=== PATIENT | female | born 1975 | race Caucasian/White ===

== ENCOUNTER 2016-07-11 17:55 | Emergency (ER) | payer OTHER ==
[~2016-07-11] VITALS: Ht 167.6 cm; Wt 62.3 kg
[~2016-07-11 17:55] MED LIST: IBUP200C PO; METO5TAB78 PO; ONDA4TAB6 PO; OXYC1TAB24 PO; POLY17PO6 PO; PROM25SU46 RC; PROM25TA14 PO; ZLP5T PO
[2016-07-11 18:05] VITALS: BP 130/88; PULSE 81; RESP 16; O2SAT 100
[2016-07-11 18:25] LABS: MONOCYTES % (AUTO) 7.4 % (4-12)
[2016-07-11 18:28] LABS: BASOPHILS % (AUTO) 0.1 % (0-3); EOSINOPHILS % (AUTO) 2.6 % (0-5); Mean Corpuscular Hemoglobin 22.5 pg (27.0-35.0); Mean Corpuscular Volume 73.3 fL (81-100); NEUTROPHILS % (AUTO) 50.3 % (40-74); Platelet Count 370 bil/L (150-400)
[2016-07-11 18:51] LABS: Magnesium 1.9 mg/dL (1.6-2.6)
--- NOTE | 2016-07-11 18:56 | ED.REPORT ---
HPI-Abd Pain F 40 and Over Date of Service Jul 11, 2016 ED Provider: Landen Davila MD This is a 40 year old female with a history of pancreatitis s/p gastric bypass presenting to the emergency department complaining of epigastric abdominal pain that began 4 days ago. Reports radiation of epigastric pain to the back and vomiting. Maalox and Tums have not provided any relief. Reports decreased PO intake, pt states even swallowing saliva causes severe "clamping" pain. Denies recent NSAID use. Denies melena, hematochezia, hematemesis, dysuria, diarrhea, or constipation. Pt had revision gastric bypass in 11/2015. Nursing Notes Stated Complaint: STOMACH PAIN Chief Complaint: Female Abdominal Pain Nursing Notes Reviewed: Yes Allergies: Coded Allergies: meloxicam (Verified Allergy, Severe, Rash, 07/11/16) rash, swelling of hands NSAIDS (Non-Steroidal Anti-Inflamma (Verified Allergy, Unknown, due to gastric bypass, 07/11/16) aspirin (Verified Allergy, Unknown, hives, 07/11/16) sumatriptan succinate (Verified Allergy, Unknown, 07/11/16) ANY TRITEN Scheduled PRN Ibuprofen (Ibuprofen) 200 Mg Capsule 400 MG PO QID PRN PRN For Pain Metoclopramide (Reglan) Unknown Strength Tablet Unknown Dose PO QID PRN PRN For Nausea Ondansetron (Zofran) 4 Mg Tablet 4 MG PO Q4 PRN PRN For Nausea Polyethylene Glycol 3350 (Miralax) 17 Gm Powd.pack 17 GM PO DAILY PRN PRN CONSTIPATION Promethazine (Promethazine) 25 Mg Tablet 25 MG PO Q6H PRN PRN For Nausea/ Vomiting only use either the rectal or oral tablets. Do not use more than 25mg total in 6 hrs. Promethazine HCl (Phenergan) 25 Mg Supp.rect 25 MG RC QID PRN PRN For Nausea/ Vomiting Zolpidem (Ambien) 5 Mg Tab 10 MG PO HS PRN PRN For Insomnia oxyCODONE-Acetaminophen 5-325 mg (oxyCODONE-Acetaminophen 5-325 mg) 1 Each Tablet 1-2 TAB PO Q6H PRN PRN For Pain General Time Seen by MD: 18:52 Chief Complaint Abdominal pain Hx Obtained From: Patient Arrived By: Walk-in Sudden in Onset?: Yes Onset Occurred: 4 days ago Symptom Duration: Since onset Severity: Current: Mild Pertinent Negative: Pt denies other symptoms Recent Healthcare: No recent doctor visit, No recent hospitalization Similar Sx Previous: No Past Medical History Past Medical History Notes: NOELLE report is reviewed and notable for multiple narcotics and benzodiazepines from multiple providers and multiple recent ER visits. Past Medical History Hernias Pancreatitis Past Surgical History 3 hernia repair surgeries Gastric bypass surgery Major intestinal surgery after intestines prolapsed into back in June of 2013 which was followed by multiple episodes of pancreatisis Reports: , Cholecystectomy, Hysterectomy Smoking History Current Every Day Smoker Social History Alcohol Use: Denies alcohol use Drug Use: Denies drug use Other Social History: Ambulatory Status Independent Review of Systems Constitutional: Denies: Chills, Fever GI: Reports: Abdominal pain, Vomiting, Denies: Constipation, Diarrhea, Hematemesis, Hematochezia, Nausea Female: Denies: Dysuria Complete sys rev & neg: except as marked. Physical Exam Vital Signs Vital Signs (First) Date Time Temp Pulse Resp B/P Pulse Ox O2 Delivery O2 Flow Rate FiO2 07/11/16 18:05 36.3 81 16 130/88 100 Room Air Initial VS: Reviewed Head / Eyes: Atraumatic, Normocephalic, PERRL ENT: Mucous membranes moist, Conjunctiva normal, No scleral icterus Neck: Supple, Non-tender, Full range of motion Extremities: Vascular intact, Neuro intact, No swelling, No tenderness Skin: Warm, Dry, No cyanosis Neurologic: Alert, Oriented, Nonfocal Psychiatric: Mood/affect normal, Behavior normal, Normal thought content General/Constitutional: Awake, Alert Respiratory / Chest: Breath sounds NL, Breath sounds = bilat, No respiratory distress, No rales, No rhonchi, No wheezing, No stridor Cardiovascular: Heart rate NL, Regular rhythm, Heart sounds NL, Peripheral circulation NL Abdomen: Soft, No guarding, No rebound, BS normoactive Tenderness/Guarding/Rebound: Positive: Tender epigastric Back: Inspection NL, Non-tender, No CVA tenderness Interpretation & Diagnostics Lab Results Interpretation Result Diagram: 07/11/16181607/11/161816 Test 07/11/16 18:17 07/11/16 19:00 White Blood Count 7.5th/mm3 (3.8-10.1) Red Blood Count 4.49mil/mm3 (3.90-5.20) Hemoglobin 10.1g/dL (12.0-15.6) Hematocrit 32.9% (35.0-46.0) Mean Corpuscular Volume 73.3fL (81-100) Mean Corpuscular Hemoglobin 22.5pg (27.0-35.0) Mean Corpuscular Hemoglobin Concent 30.7% (32.0-37.0) Red Cell Distribution Width 19.9% (12.3-15.4) Platelet Count 370bil/L (150-400) Neutrophils (%) (Auto) 50.3% (40-74) Lymphocytes (%) (Auto) 39.3% (14-46) Monocytes (%) (Auto) 7.4% (4-12) Eosinophils (%) (Auto) 2.6% (0-5) Basophils (%) (Auto) 0.1% (0-3) Sodium Level 137mEq/L (134-144) Potassium Level 3.8mEq/L (3.5-5.2) Chloride Level 101mEq/L (97-108) Carbon Dioxide Level 25mmol/L (18-29) Blood Urea Nitrogen 6mg/dL (6-24) Creatinine 0.61mg/dL (0.57-1.00) Estimat Glomerular Filtration Rate 156mL/min (>59) Glucose Level 114mg/dL (60-99) Calcium Level 8.7mg/dL (8.5-10.1) Magnesium Level 1.9mg/dL (1.6-2.6) Total Bilirubin 0.4mg/dL (0.0-1.2) Aspartate Amino Transf (AST/SGOT) 20U/L (0-50) Alanine Aminotransferase (ALT/SGPT) 12U/L (0-32) Alkaline Phosphatase 75U/L (25-150) Total Protein 7.0g/dL (6.4-8.4) Albumin 4.0g/dL (3.4-5.0) Lipase 72U/L (13-60) Hold [place] Top Tube Received (Received) Hold Urine Received (Received) CT Abd / Pelvis Interpretation Study type: Abdom CT oral contrast Interpretation / Wet Read by: Discussed w radiologist NL CT Abdomen Findings: No acute disease Re-Eval/Medical Decision Med Decision/Clinical Course This is a 40 year old female with a history of pancreatitis s/p gastric bypass presenting to the emergency department complaining of epigastric abdominal pain that began 4 days ago. Reports radiation of epigastric pain to the back and vomiting. Maalox and Tums have not provided any relief. Reports decreased PO intake, pt states even swallowing saliva causes severe "clamping" pain. Denies recent NSAID use. Denies melena, hematochezia, hematemesis, dysuria, diarrhea, or constipation. Pt had revision gastric bypass in 11/2015. Here in the emergency department the patient is afebrile stool examination as above. Of note she is tender about the epigastric region. Laboratory studies notable as below: no leucocytosis Hct 32.9 which is stable from baseline chemistry unremarkable lipase mildly elevated at 72 though decreased from baseline Patient was treated with the below medications: IV pantoprazole IV fluids 8 mg Zofran hydromorphone PRN Patient reported significant symptomatic improvement. Due to concern for possible anastomotic leak competition related to her gastric bypass surgery I obtained a CT scan of the abdomen and pelvis that was essentially unremarkable. Serial abdominal examinations remained benign. Patient has been started on omeprazole and referred to gastroenterology for consideration of upper endoscopy to assess for any evidence of peptic ulcer disease. At this time I feel she is appropriate for discharge home. Pulse pressure precautions were given detail and she was discharged in good condition. Counseled Regarding: Diagnosis, Lab results, Need for follow-up, When/why to return to ED Discharge & Departure Primary Impression: Gastritis Additional Impressions: History of gastric bypass Epigastric pain Disposition: Home Discharge Condition All VS Reviewed: Yes Condition: Stable Patient Instructions: Gastritis (ED) Additional Instructions: Thank you for seeking care at emergency room. It is difficult for us to make definitive diagnoses in the ED but we believe that you are experiencing gastritis. Our primary goal today in the ED was to evaluate you for any life-threatening conditions. Your evaluation was reassuring. You will be discharged with a prescription for omeprazole, take as prescribed. You should follow-up with the GI doctor listed below. You should return to the ED immediately if you develop fevers, vomiting, cough, shortness of breath, chest pain, lightheadedness, weakness or any other concerning signs or symptoms. Thank you for letting us partake in your care today. Referrals: OTHER,PHYSICIAN (PCP) Jose Beck MD Scribe Attestation Portions of this note were transcribed by Claudia Monique. I, Dr. Davila personally performed the history, physical exam and medical decision-making; I reviewed and confirmed the accuracy of the information in the transcribed note. Signed by: stacy Syed. 07/11/2016, 23:30. Landen Davila MD Jul 11, 2016 18:55 CLAUDIA MONIQUE Jul 11, 2016 19:00
[2016-07-11] MEDS ORDERED: 0.9% Sodium Chloride 1,000 ML IV ONE (19:40)
[2016-07-11] MEDS ORDERED: Ondansetron 2 mg/mL 2 mL Inj IVPUSH ONE ×2 (19:40→21:50)
[2016-07-11] MEDS ORDERED: Pantoprazole 4 mg/mL 10 mL Inj IVPUSH ONE (19:40)
[2016-07-11] MEDS ORDERED: Iohexol 240 mg/mL 10 mL Inj IVPUSH ONE (19:50)
[2016-07-11] MEDS: HYDROmorphone 0.5 mg/0.5 mL iSecure Syringe IVPUSH PRN ×3 (20:08→22:02)
[2016-07-11] MEDS ORDERED: Iohexol 300 mg/mL 30 mL Inj PO ONE (20:20)
[2016-07-11] MEDS ORDERED: OMEP20CA11 PO (22:12)
[2016-07-11] MEDS ORDERED: ONDA4TAB9 PO (22:12)
--- NOTE | 2016-07-11 22:12 | DRSVH ---
PROCEDURE: CT ABDOMEN AND PELVIS WITH CONTRAST ([id number]) INDICATIONS: epigastic pain, h/o gastric bypass TECHNIQUE: After the administration of oral and intravenous contrast, 5 mm thick sections acquired from the diap hragms to the symphysis. 5 mm thick coronal and sagittal reformats were performed. For radiation do se reduction, the following was used: automated exposure control, adjustment of mA and/or kV accordi ng to patient size. COMPARISON: [facility], CT, ABDOMEN/PELVIS WITH CONTRAST, 09/14/2015, 17:17. FINDINGS: Image quality: Excellent. ABDOMEN: Lung bases: Lung bases are clear. Heart size is normal. Solid organs: Liver and spleen are normal in size and enhancement. Scattered low attenuation foci ar e present within the liver, suggestive of cysts. Low-attenuation splenic foci are again noted without change. Gallbladder has been removed. Biliary system is non-dilated. Pancreas enhances normally. No adrenal nodules. Kidneys are normal in size and enhancement, without hydronephrosis. Peritoneum and bowel: Small bowel, and colon loops are normal in caliber and wall thickness. No fidel e fluid or air. Gastric bypass surgical changes are noted. Moderate stool is present. Nodes and vessels: No retroperitoneal or mesenteric adenopathy. Aorta and inferior vena cava are no rmal in caliber. Miscellaneous: No ventral hernias. PELVIS: Genitourinary: Bladder wall thickness is normal. Prominent follicles/small cysts within the left ov homer. Miscellaneous: No inguinal hernias or adenopathy. Bones: No suspicious bony lesions. No vertebral body compression fractures. IMPRESSION: 1. Surgical changes reflecting gastric bypass. No acute abdominal or pelvic pathology. 2. Hepatic cysts. Dictated by: Jennifer Soriano M.D. on 07/11/2016 at 22:06 Approved by: Jennifer Soriano M.D. on 07/11/2016 at 22:10
[2016-07-11] MEDS ORDERED: HYDR-4003 PO (22:17)
[2016-07-11 22:19] VITALS: BP 128/82; PULSE 80; RESP 16; O2SAT 98
== END 2016-07-11 22:21 | disposition home or self-care (01) ==
LOC: SED 17:55
DX: K29.70 Gastritis, unspecified, without bleeding (principal); R10.13 Epigastric pain; F17.200 Nicotine dependence, unspecified, uncomplicated; Z98.84 Bariatric surgery status; Z88.8 Allergy status to other drugs, medicaments and biological substances; Z88.6 Allergy status to analgesic agent
CPT/HCPCS: 36415; 74177; 80053; 83690; 83735; 85025; 96361; 96374; 96375; 96376; 99285; J1170; J2405; J7030; Q9967

== ENCOUNTER 2016-10-06 09:52 | Emergency (ER) | payer OTHER ==
[~2016-10-06] VITALS: Ht 167.6 cm; Wt 64.5 kg
[~2016-10-06 09:52] MED LIST changes: +HYDR-4003 PO; +OMEP20CA11 PO; +ONDA4TAB9 PO
[2016-10-06 10:03] VITALS: BP 132/86; PULSE 93; RESP 20; O2SAT 100
--- NOTE | 2016-10-06 10:23 | ED.REPORT ---
HPI-Abd Pain F 40 and Over Date of Service October 06, 2016 ED Provider: Eulogio Parks MD The patient is a 40 year old female who presents to the ED with severe lower back pain onset last night. C/o associated nausea. There was no apparent fall or trauma that could have led to symptoms. She denies UTI symptoms and fever. When she stands up she has groin pain. Sig hx of hysterectomy, cholecystectomy, gastric bypass surgery, intestinal surgery, and pancreatitis. Pt requests narcotics. Nursing Notes Stated Complaint: KIDNEY PAIN Chief Complaint: Female Abdominal Pain Nursing Notes Reviewed: Yes Allergies: Coded Allergies: meloxicam (Verified Allergy, Severe, Rash, 10/06/16) rash, swelling of hands NSAIDS (Non-Steroidal Anti-Inflamma (Verified Allergy, Unknown, due to gastric bypass, 10/06/16) aspirin (Verified Allergy, Unknown, hives, 10/06/16) sumatriptan succinate (Verified Allergy, Unknown, 10/06/16) ANY TRITEN Scheduled Omeprazole (Omeprazole) 20 Mg Capsule.dr 20 MG PO BID Scheduled PRN Hydrocodone-Acetaminophen 5-325 mg (Hydrocodone-Acetaminophen 5-325 mg) 1 Each Tablet 1 TABLET PO Q4H PRN PRN For Pain Hydrocodone-Acetaminophen 5-325 mg (Hydrocodone-Acetaminophen 5-325 mg) 1 Each Tablet 1 TABLET PO Q4H PRN PRN For Pain Ibuprofen (Ibuprofen) 200 Mg Capsule 400 MG PO QID PRN PRN For Pain Metoclopramide (Reglan) Unknown Strength Tablet Unknown Dose PO QID PRN PRN For Nausea Ondansetron (Zofran) 4 Mg Tablet 4 MG PO Q4 PRN PRN For Nausea Ondansetron ODT (Zofran ODT) 4 Mg Tablet 4 MG PO Q4H PRN PRN For Nausea Polyethylene Glycol 3350 (Miralax) 17 Gm Powd.pack 17 GM PO DAILY PRN PRN CONSTIPATION Promethazine (Promethazine) 25 Mg Tablet 25 MG PO Q6H PRN PRN For Nausea/ Vomiting only use either the rectal or oral tablets. Do not use more than 25mg total in 6 hrs. Promethazine HCl (Phenergan) 25 Mg Supp.rect 25 MG RC QID PRN PRN For Nausea/ Vomiting Zolpidem (Ambien) 5 Mg Tab 10 MG PO HS PRN PRN For Insomnia oxyCODONE-Acetaminophen 5-325 mg (oxyCODONE-Acetaminophen 5-325 mg) 1 Each Tablet 1-2 TAB PO Q6H PRN PRN For Pain General Time Seen by MD: 10:14 Chief Complaint Other (lower back pain) Hx Obtained From: Patient Arrived By: Walk-in Sudden in Onset?: Yes Onset Occurred: Yesterday Symptom Duration: Since onset Location: : Back Quality: Painful Severity: Current: Moderate Recent Healthcare: No recent doctor visit, No recent hospitalization Similar Sx Previous: No Past Medical History Past Medical History Notes: NOELLE report is reviewed and notable for multiple narcotics and benzodiazepines from multiple providers and multiple recent ER visits. Past Medical History Hernias Pancreatitis Past Surgical History 3 hernia repair surgeries Gastric bypass surgery Major intestinal surgery after intestines prolapsed into back in June of 2013 which was followed by multiple episodes of pancreatitis Reports: , Cholecystectomy, Hysterectomy, Inguinal hernia repair Smoking History Current Every Day Smoker Social History Alcohol Use: Denies alcohol use Drug Use: Denies drug use Other Social History: Ambulatory Status Independent Review of Systems epigastric pain Constitutional: Denies: Fever GI: Reports: Nausea Female: Denies: Dysuria, Hematuria, Urinary frequency, Urinary urgency Musculoskeletal: Reports: Back pain Complete sys rev & neg: except as marked. Physical Exam Vital Signs Vital Signs (First) Date Time Temp Pulse Resp B/P Pulse Ox O2 Delivery O2 Flow Rate FiO2 10/06/16 10:03 36.1 93 20 132/86 100 Room Air Initial VS: Reviewed Head / Eyes: Atraumatic, Normocephalic ENT: Mucous membranes moist Lymphatic: No lymphadenopathy Extremities: Vascular intact, Neuro intact, No swelling, No tenderness Skin: Warm, Dry Abdomen: Atraumatic, Soft, Non-tender Back: No muscle spasm right cva tenderness Interpretation & Diagnostics Interpretation & Diagnostics: CT KUB IMPRESSION: 1. No renal stone or hydronephrosis. 2. Status post gastric bypass, cholecystectomy and hysterectomy. 3. 2.6 cm and 2.0 cm left adnexal region cyst. Recommend nonemergent pelvic ultrasound for definitive characterization. Dictated by: Shirley Christopher MD, PhD on 10/06/2016 at 11:03 Approved by: Shirley Christopher MD, PhD on 10/06/2016 at 11:09 Lab Results Interpretation Result Diagram: 10/06/16 1025 10/06/16 1025 Test 10/06/16 10:20 10/06/16 10:25 Urine Color Straw (YELLOW) Urine Appearance Clear (CLEAR,HAZY) Urine pH 5.5 (5.0-8.0) Urine Specific [place] 1.005 (1.003-1.035) Urine Protein Negativemg/dL (NEG,TRACE) Urine Glucose (UA) Negativemg/dL (NEGATIVE) Urine Ketones Negativemg/dL (NEGATIVE) Urine Occult Blood Trace (NEGATIVE) Urine Nitrite Negative (NEGATIVE) Urine Bilirubin Negative (NEGATIVE) Urine Urobilinogen Normalmg/dL (NORMAL) Urine Leukocyte Esterase Negative (NEGATIVE) Urine RBC 0-2/hpf (0-2) Urine WBC 0-5/hpf (0-5) Urine Epithelial Cells Few/hpf (NONE-MOD) Urine Crystals None seen (NONE SEEN) Urine Bacteria Few/hpf (NONE-FEW) Urine Hyaline Casts None/lpf (NONE) Urine Granular Casts None seen (NONE SEEN) Urine Waxy Casts None seen (NONE SEEN) Urine Red Blood Cell Casts None seen (NONE SEEN) Urine White Blood Cell Casts None seen (NONE SEEN) Urine Mucus None seen (None Seen) Urine Trichomonas None seen (NONE SEEN) Urine Yeast None (NONE SEEN) Urinalysis Comment None Urine Culture Reflexed Not indicated Hold Urine Received (Received) White Blood Count 5.4th/mm3 (3.8-10.1) Red Blood Count 4.41mil/mm3 (3.90-5.20) Hemoglobin 9.6g/dL (12.0-15.6) Hematocrit 31.7% (35.0-46.0) Mean Corpuscular Volume 71.9fL (81-100) Mean Corpuscular Hemoglobin 21.8pg (27.0-35.0) Mean Corpuscular Hemoglobin Concent 30.3% (32.0-37.0) Red Cell Distribution Width 20.2% (12.3-15.4) Platelet Count 405bil/L (150-400) Neutrophils (%) (Auto) 52.3% (40-74) Lymphocytes (%) (Auto) 38.2% (14-46) Monocytes (%) (Auto) 6.9% (4-12) Eosinophils (%) (Auto) 2.2% (0-5) Basophils (%) (Auto) 0.4% (0-3) Sodium Level 139mEq/L (134-144) Potassium Level 4.3mEq/L (3.5-5.2) Chloride Level 105mEq/L (97-108) Carbon Dioxide Level 23mmol/L (18-29) Blood Urea Nitrogen 9mg/dL (6-24) Creatinine 0.46mg/dL (0.57-1.00) Estimat Glomerular Filtration Rate 216mL/min (>59) Glucose Level 87mg/dL (60-99) Calcium Level 8.7mg/dL (8.5-10.1) Magnesium Level 2.0mg/dL (1.6-2.6) Total Bilirubin 0.5mg/dL (0.0-1.2) Aspartate Amino Transf (AST/SGOT) 29U/L (0-50) Alanine Aminotransferase (ALT/SGPT) 13U/L (0-32) Alkaline Phosphatase 72U/L (25-150) Total Protein 6.4g/dL (6.4-8.4) Albumin 3.5g/dL (3.4-5.0) Lipase 106U/L (13-60) Re-Eval/Medical Decision Med Decision/Clinical Course 40-year-old female history of hysterectomy, cholecystectomy, appendectomy, kidney stone presenting with right flank pain since last night. Hematuria on urine no evidence of infection. Right CVA tenderness on initial exam. Her CT KUB shows no evidence of kidney stones. Her pain resolved. Labs are stable. Likely with kidney stone passed. Discharged home with return precautions. Re-Evaluation/Progress : Time of Eval: 11:45 Patient Status: Condition improved, Pain improved Re-Evaluation/Progress Note: Pt rechecked. Her pain is much improved. Informed pt of normal catscan results, plan for discharge and treatment. F/U and RTER warnings given. Pt understands and agrees with plan. All questions addressed. Counseled Regarding: Diagnosis, Lab results, Need for follow-up, When/why to return to ED Discharge & Departure Primary Impression: Kidney stone Additional Impression: Abdominal pain Abdominal location: unspecified location Qualified Code: R10.9 - Unspecified abdominal pain Disposition: Home Discharge Condition All VS Reviewed: Yes Condition: Stable Additional Instructions: Thank you for entrusting us with your care today. Your Catscan was normal but suggests that you could have passed a kidney stone. All of your labs are normal as well and there are no signs of infection. Return to the Emergency Department for any new or worsening symptoms including nausea, fever, vomiting, abdominal pain, and diarrhea. I hope you feel better soon, enjoy the beautiful weather! Referrals: OTHER,PHYSICIAN (PCP) [facility] Scribe Attestation Portion of this note were transcribed by Suzanna Ugarte. I, Dr. Parks, personally performed the history, physical exam, and medical decision-making: I reviewed and confirmed the accuracy for the information in the transcribed note. Signed by: stacy More, 10/06/16 1200 copies to: [facility] Eulogio Parks MD October 06, 2016 10:23 Suzanna Ugarte October 06, 2016 10:44
[2016-10-06] MEDS ORDERED: 0.9% Sodium Chloride 1,000 ML IV ONE (10:41)
[2016-10-06] MEDS ORDERED: Ondansetron 2 mg/mL 2 mL Inj IVPUSH PRN (10:45)
--- NOTE | 2016-10-06 11:11 | DRSVH ---
PROCEDURE: CT KUB (PNL-7475) INDICATIONS: Right flank h/o kidney stones TECHNIQUE: Noncontrast 5 mm thick sections acquired from the diaphragms to the symphysis. 5 mm thick coronal an d sagittal reformats were then performed. For radiation dose reduction, the following was used: aut omated exposure control, adjustment of mA and/or kV according to patient size. COMPARISON: [facility], , ABDOMEN 2 VIEW, 08/09/2016, 23:05. [facility], CT, CT A BD PELVIS W CON, 07/11/2016, 21:37. [facility], CR, ABDOMEN ACUTE SERIES, 11/11/2015, 21:49. [facility], CT, ABDOMEN/PELVIS WITH CONTRAST, 09/14/2015, 17:17. [facility], , ABDOMEN 2 VIE W, 09/13/2015, 8:54. [facility], ABDOMEN 2 VIEW, 07/15/2015, 16:16. [facility], US, ABD OMEN LIMITED, 07/12/2015, 21:07. [facility], , ABDOMEN 2 VIEW, 07/12/2015, 20:34. [facility], CR, ABDOMEN ACUTE SERIES, 02/14/2015, 18:08. [facility], CT, CT ABD PELVIS W CON, , 17:20. [facility], CR, ABDOMEN ACUTE SERIES, 12/06/2014, 0:09. [facility], CR, ABD ACUTE SERIES, 10/29/2014, 15:36. [facility], CT, ABDOMEN/PELVIS WITH CONTRAST, 5, 8:32. [facility], CR, ABDOMEN ACUTE SERIES, 07/04/2014, 23:02. [facility] CR, ABDOMEN ACUTE SERIES, 06/20/2014, 19:27. [facility], CT, ABDOMEN/PELVIS WITH CONTRAST, 01/23/2014, 19:16. [facility], CT, ABDOMEN/PELVIS WITHOUT CONTRAS, 01/20/2014, 9:10. [facility], CT, ABDOMEN /PELVIS WITH CONTRAST, 12/24/2013, 0:53. [facility], CT, ABDOMEN/PELVIS WITH CONTRAST, 10/08/2012 , 20:47. [facility], CT, KIDNEY/ URETER/BLADDER, 03/12/2012, 17:48. FINDINGS: Image quality: Excellent. Lung bases: Lung bases are clear. Heart size is normal. Urinary system: Both kidneys are normal in size. No kidney stones. No hydronephrosis or perinephri c fat stranding. Both ureters appear non-dilated throughout their expected courses. Bladder wall th ickness is normal; no calcified bladder stones. Small phleboliths in the lower pelvis are stable comp ared to prior examinations. Other solid organs: Liver and spleen are normal in size. Attic cysts are stable compared to prior ex aminations. Gallbladder surgically absent. Pancreas is normal in contours. No adrenal nodules. Peritoneum and bowel: Postsurgical changes compatible prior gastric bypass surgery noted. Unenhance d bowel loops demonstrate normal wall thickness and caliber. No free fluid or air. Visualized append ix is normal. Nodes and vessels: No retroperitoneal or mesenteric adenopathy by size criteria. Aorta and inferior vena cava are normal in caliber. Abdominal wall: No ventral hernias. Pelvis: No free pelvic fluid. No inguinal hernias or adenopathy. Right adnexal region cyst are stab le compared to prior CT scan obtained 07/11/2016. Bones: No suspicious bony lesions. No vertebral body compression fractures. IMPRESSION: 1. No renal stone or hydronephrosis. 2. Status post gastric bypass, cholecystectomy and hysterectomy. 3. 2.6 cm and 2.0 cm left adnexal region cyst. Recommend nonemergent pelvic ultrasound for definiti ve characterization. Dictated by: Shirley Christopher MD, PhD on 10/06/2016 at 11:03 Approved by: Shirley Christopher MD, PhD on 10/06/2016 at 11:09
[2016-10-06 11:14] LABS: BASOPHILS % (AUTO) 0.4 % (0-3); EOSINOPHILS % (AUTO) 2.2 % (0-5); MONOCYTES % (AUTO) 6.9 % (4-12); Mean Corpuscular Hemoglobin 21.8 pg (27.0-35.0); Mean Corpuscular Volume 71.9 fL (81-100); NEUTROPHILS % (AUTO) 52.3 % (40-74); Platelet Count 405 bil/L (150-400)
[2016-10-06 11:40] LABS: APPEARANCE,URINE CLEAR (CLEAR,HAZY); COLOR,URINE STRAW (YELLOW); OCCULT BLOOD,URINE TRACE (NEGATIVE); PH,URINE 5.5 (5.0-8.0); UROBILINOGEN,URINE NORMAL (NORMAL)
[2016-10-06] MEDS ORDERED: HYDR-4003 PO (12:12)
[2016-10-06 12:23] VITALS: BP 132/86; PULSE 93; RESP 20; O2SAT 100
== END 2016-10-06 12:25 | disposition home or self-care (01) ==
LOC: SED 09:52
DX: N20.1 Calculus of ureter (principal); R10.9 Unspecified abdominal pain; R11.0 Nausea; F17.200 Nicotine dependence, unspecified, uncomplicated; Z88.9 Allergy status to unspecified drugs, medicaments and biological substances; Z88.6 Allergy status to analgesic agent; Z98.890 Other specified postprocedural states
CPT/HCPCS: 36415; 74176; 80053; 81000; 83690; 83735; 85025; 96361; 96374; 96375; 99285; J2270; J2405; J7030

== ENCOUNTER 2016-11-19 16:58 | Emergency (ER) | payer OTHER ==
[~2016-11-19] VITALS: Ht 167.6 cm; Wt 62.2 kg
[2016-11-19 17:00] VITALS: BP 131/78; RESP 17; O2SAT 100
--- NOTE | 2016-11-19 17:06 | ED.REPORT ---
HPI-Dental/Mouth Prob Date of Service Nov 19, 2016 ED Provider: Dr. Davila Pt is a 40 y/o female presenting to the ED s/p total extraction 6 days ago complaining of increased pain. She reports that the pain is increased today and that she can taste a discharge from the wound site. She denies any other symptoms at this time. She denies fevers chills, nausea vomiting. Nursing Notes Stated Complaint: LEFT LOWER JAW/EAR PAIN Chief Complaint: ENT & Mouth Nursing Notes Reviewed: Yes Allergies: Coded Allergies: meloxicam (Verified Allergy, Severe, Rash, 10/06/16) rash, swelling of hands NSAIDS (Non-Steroidal Anti-Inflamma (Verified Allergy, Unknown, due to gastric bypass, 10/06/16) aspirin (Verified Allergy, Unknown, hives, 10/06/16) sumatriptan succinate (Verified Allergy, Unknown, 10/06/16) ANY TRITEN Scheduled Omeprazole (Omeprazole) 20 Mg Capsule.dr 20 MG PO BID Scheduled PRN Hydrocodone-Acetaminophen 5-325 mg (Hydrocodone-Acetaminophen 5-325 mg) 1 Each Tablet 1 TABLET PO Q4H PRN PRN For Pain Hydrocodone-Acetaminophen 5-325 mg (Hydrocodone-Acetaminophen 5-325 mg) 1 Each Tablet 1 TABLET PO Q4H PRN PRN For Pain Ibuprofen (Ibuprofen) 200 Mg Capsule 400 MG PO QID PRN PRN For Pain Metoclopramide (Reglan) Unknown Strength Tablet Unknown Dose PO QID PRN PRN For Nausea Ondansetron (Zofran) 4 Mg Tablet 4 MG PO Q4 PRN PRN For Nausea Ondansetron ODT (Zofran ODT) 4 Mg Tablet 4 MG PO Q4H PRN PRN For Nausea Polyethylene Glycol 3350 (Miralax) 17 Gm Powd.pack 17 GM PO DAILY PRN PRN CONSTIPATION Promethazine (Promethazine) 25 Mg Tablet 25 MG PO Q6H PRN PRN For Nausea/ Vomiting only use either the rectal or oral tablets. Do not use more than 25mg total in 6 hrs. Promethazine HCl (Phenergan) 25 Mg Supp.rect 25 MG RC QID PRN PRN For Nausea/ Vomiting Zolpidem (Ambien) 5 Mg Tab 10 MG PO HS PRN PRN For Insomnia oxyCODONE-Acetaminophen 5-325 mg (oxyCODONE-Acetaminophen 5-325 mg) 1 Each Tablet 1-2 TAB PO Q6H PRN PRN For Pain oxyCODONE-Acetaminophen 5-325 mg (oxyCODONE-Acetaminophen 5-325 mg) 1 Each Tablet 1 TAB PO Q4H PRN PRN For Pain General Time Seen by MD: 17:05 Chief Complaint Mouth pain Hx Obtained From: Patient Arrived By: Walk-in Onset Occurred: Just prior to arrival Symptom Duration: Since onset Quality: Painful Severity: Current: Moderate Severity: Maximum: Severe Recent Healthcare: No recent doctor visit, No recent hospitalization Similar Sx Previous: No Past Medical History Past Medical History Notes: NOELLE report is reviewed and notable for multiple narcotics and benzodiazepines from multiple providers and multiple recent ER visits. 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 Physical Exam Initial Vital Signs Vital Signs (First) Date Time Temp Pulse Resp B/P Pulse Ox O2 Delivery O2 Flow Rate FiO2 11/19/16 17:00 36.8 103 17 131/78 100 Room Air Initial VS: Reviewed General/Constitutional: Well-developed, Well-nourished Head / Eyes: Atraumatic, Normocephalic, PERRL Respiratory: Breath sounds normal, Clear to auscultation, No respiratory distress Abdomen / GI: Soft, Non-tender, No guarding, No rebound, No distention Extremities: Vascular intact, Neuro intact, No swelling, No tenderness Skin: Warm, Dry, No cyanosis Neurologic: Alert, Oriented, Nonfocal Psychiatric: Mood/affect normal, Behavior normal, Normal thought content ENT: Atraumatic, Airway patent, Mucous membranes moist Tooth 17 absent. No bleeding or purulent discharge. No sign of inefection. Neck: Atraumatic, Supple, Full range of motion, No adenopathy Re-Eval/Medical Decision Med Decision/Clinical Course Pt is a 40 y/o female presenting to the ED s/p total extraction 6 days ago complaining of increased pain. She reports that the pain is increased today and that she can taste a discharge from the wound site. She denies any other symptoms at this time. Here in the emergency department the patient was afebrile with stable vital signs examination as above. Overall presentation is most consistent with dry socket. The socket was packed. The patient was provided with pain medications. She is artery on antibiotics which she is advised to continue taking. Considered other possible causes of dental pain including periapical abscess, gingivitis, Erik's angina, sinusitis, and molar impaction but these are unlikely based on the history and exam. Patient will follow up with her dentist tomorrow. Also reviewed precautions for return to the ED and the importance of f/u with a dentist, which she agreed to do. Re-Evaluation/Progress : Time of Eval: 17:17 Patient Status: Condition improved Re-Evaluation/Progress Note: Discussed plan for discharge. Pt understands and agrees. Counseled Regarding: Diagnosis, Lab results, Need for follow-up, When/why to return to ED Discharge & Departure Primary Impression: Pain, dental Additional Impression: Dry tooth socket Disposition: Home Discharge Condition All VS Reviewed: Yes Condition: Improved Additional Instructions: Thank you for seeking care at the emergency room. Our primary goal today in the ED was to evaluate you for any life-threatening conditions. Your evaluation was reassuring. You will be discharged with a prescription for Oxycodone. Keep taking the Amoxicillin. Follow up with your dentist as soon as they return to the office. Return to the ER or call a different dentist office if you develop any new or worsening symptoms. You should return to the ED immediately if you develop fevers, vomiting, cough, shortness of breath, chest pain, lightheadedness, weakness or any other concerning signs or symptoms. Thank you for letting us partake in your care today. Referrals: TOD BAY (PCP) Scribe Attestation Portions of this note were transcribed by Michelle Feng. I, Dr. Davila personally performed the history, physical exam and medical decision-making; I reviewed and confirmed the accuracy of the information in the transcribed note. Signed by: Rafael Banuelos, 11/19/2016 at 1724. copies to: [facility] Landen Rivera MD Nov 19, 2016 17:06 MICHELLE FENG Nov 19, 2016 17:17
[2016-11-19] MEDS ORDERED: OXYC1TAB24 PO (17:22)
== END 2016-11-19 17:30 | disposition home or self-care (01) ==
LOC: SED 16:58
DX: K08.89 Other specified disorders of teeth and supporting structures (principal); M27.3 Alveolitis of jaws; Z98.818 Other dental procedure status; Z98.84 Bariatric surgery status; Z88.6 Allergy status to analgesic agent; Z88.8 Allergy status to other drugs, medicaments and biological substances; F17.200 Nicotine dependence, unspecified, uncomplicated

== ENCOUNTER 2016-12-23 18:32 | Emergency (ER) | payer OTHER ==
[~2016-12-23] VITALS: Ht 167.6 cm; Wt 62.3 kg
[2016-12-23 18:37] VITALS: BP 139/88; PULSE 74; RESP 15; O2SAT 100
[2016-12-23 19:39] LABS: BASOPHILS % (AUTO) 0.3 % (0-3); EOSINOPHILS % (AUTO) 1.4 % (0-5); MONOCYTES % (AUTO) 6.9 % (4-12); Mean Corpuscular Hemoglobin 20.8 pg (27.0-35.0); Mean Corpuscular Volume 69.6 fL (81-100); NEUTROPHILS % (AUTO) 49.7 % (40-74); Platelet Count 345 bil/L (150-400)
[2016-12-23 22:29] VITALS: BP 120/86; PULSE 67; RESP 17; O2SAT 94
[2016-12-23] MEDS ORDERED: 0.9% Sodium Chloride 1,000 ML IV ONE (22:53)
[2016-12-23] MEDS ORDERED: Famotidine 10 mg/mL 2 mL Inj IVPUSH ONE (22:55)
[2016-12-23] MEDS ORDERED: Famotidine 20 mg/50 mL NS Premix IV ONE (23:00)
[2016-12-23 23:07] LABS: INR 0.92 ratio
[2016-12-23] MEDS ORDERED: HYDROmorphone 1 mg/mL Inj IVPUSH PRN (23:20)
[2016-12-24 00:58] LABS: APPEARANCE,URINE CLEAR (CLEAR,HAZY); COLOR,URINE YELLOW (YELLOW); OCCULT BLOOD,URINE TRACE (NEGATIVE); PH,URINE 6.5 (5.0-8.0); UROBILINOGEN,URINE NORMAL (NORMAL)
--- NOTE | 2016-12-24 01:22 | ED.REPORT ---
HPI-Abd Pain F 40 and Over Date of Service Dec 24, 2016 ED Provider: Misael Cowart MD The pt is a 41 y/o female with a hx of pancreatitis (s/p gastric bypass), fibromyalgia, macrolipasemia, abdominal adhesions and multiple abdominal surgeries (with the last surgery last year) who presents to the ED complaining of epigastric pain since this morning. Associated sx include nausea, vomiting and "chalky" stool. The pt has been taking Zofran but it has not improved her sx. She denies fever, melena, hematochezia, and being in contact with someone who is sick. The pt had a revision gastric bypass in summer 2015 after a prolonged illness led to the discovery of an anastomotic leak. Nursing Notes Stated Complaint: UPPER RIGHT ABDOMINAL/BACK PAIN, VOMITING Chief Complaint: Female Abdominal Pain Nursing Notes Reviewed: Yes Allergies: Coded Allergies: meloxicam (Verified Allergy, Severe, Rash, 12/23/16) rash, swelling of hands NSAIDS (Non-Steroidal Anti-Inflamma (Verified Allergy, Unknown, due to gastric bypass, 12/23/16) aspirin (Verified Allergy, Unknown, hives, 12/23/16) sumatriptan succinate (Verified Allergy, Unknown, 12/23/16) ANY TRITEN Scheduled Esomeprazole Magnesium (Nexium) 40 Mg Capsule.dr 40 MG PO DAILY Omeprazole (Omeprazole) 20 Mg Capsule.dr 20 MG PO BID Scheduled PRN Hydrocodone-Acetaminophen 5-325 mg (Hydrocodone-Acetaminophen 5-325 mg) 1 Each Tablet 1 TABLET PO Q4H PRN PRN For Pain Hydrocodone-Acetaminophen 5-325 mg (Hydrocodone-Acetaminophen 5-325 mg) 1 Each Tablet 1 TABLET PO Q4H PRN PRN For Pain Ibuprofen (Ibuprofen) 200 Mg Capsule 400 MG PO QID PRN PRN For Pain Metoclopramide (Reglan) Unknown Strength Tablet Unknown Dose PO QID PRN PRN For Nausea Ondansetron (Zofran) 4 Mg Tablet 4 MG PO Q4 PRN PRN For Nausea Ondansetron ODT (Zofran ODT) 4 Mg Tablet 4 MG PO Q4H PRN PRN For Nausea Ondansetron ODT (Ondansetron ODT) 8 Mg Tab.rapdis 8 MG PO QID PRN PRN For Nausea Polyethylene Glycol 3350 (Miralax) 17 Gm Powd.pack 17 GM PO DAILY PRN PRN CONSTIPATION Promethazine (Promethazine) 25 Mg Tablet 25 MG PO Q6H PRN PRN For Nausea/ Vomiting only use either the rectal or oral tablets. Do not use more than 25mg total in 6 hrs. Promethazine HCl (Phenergan) 25 Mg Supp.rect 25 MG RC QID PRN PRN For Nausea/ Vomiting Zolpidem (Ambien) 5 Mg Tab 10 MG PO HS PRN PRN For Insomnia oxyCODONE-Acetaminophen 5-325 mg (oxyCODONE-Acetaminophen 5-325 mg) 1 Each Tablet 1-2 TAB PO Q6H PRN PRN For Pain oxyCODONE-Acetaminophen 5-325 mg (oxyCODONE-Acetaminophen 5-325 mg) 1 Each Tablet 1 TAB PO Q4H PRN PRN For Pain General Time Seen by MD: 22:18 Chief Complaint Abdominal pain Hx Obtained From: Patient Arrived By: Walk-in Sudden in Onset?: Yes Onset Occurred: 5 - 8 hours ago Symptom Duration: Since onset Location: : Epigastric Quality: Painful Severity: Current: Moderate Severity: Maximum: Moderate Recent Healthcare: Recent doctor visit Similar Sx Previous: Yes Past Medical History Past Medical History Notes: NOELLE report is reviewed and notable for multiple narcotics and benzodiazepines from multiple providers and multiple recent ER visits. Past Medical History Hernias Pancreatitis fibromyalgia macrolipademia migraines abdominal adhesions Past Surgical History 3 hernia repair surgeries Gastric bypass surgery Major intestinal surgery after intestines prolapsed into back in June of 2013 which was followed by multiple episodes of pancreatitis Reports: , Cholecystectomy, Hysterectomy, Inguinal hernia repair Smoking History Current Every Day Smoker Social History Alcohol Use: Denies alcohol use Drug Use: Denies drug use Other Social History: Ambulatory Status Independent Review of Systems Reports: "chalky" stool Constitutional: Denies: Fever GI: Reports: Abdominal pain, Nausea, Vomiting, Denies: Hematochezia, Melena Complete sys rev & neg: except as marked. Physical Exam Vital Signs Vital Signs (First) Date Time Temp Pulse Resp B/P Pulse Ox O2 Delivery O2 Flow Rate FiO2 12/23/16 18:37 36.8 74 15 139/88 100 Room Air Initial VS: Reviewed Head / Eyes: Atraumatic, Normocephalic Neck: Supple, Non-tender, Full range of motion Extremities: Vascular intact, Neuro intact, No swelling, No tenderness Skin: Warm, Dry, No cyanosis Neurologic: Alert, Oriented, Nonfocal General/Constitutional: Awake, Alert, No acute distress, Cooperative Respiratory / Chest: Atraumatic, Breath sounds NL, Breath sounds = bilat, No respiratory distress, No rales, No rhonchi, No wheezing, No retractions Cardiovascular: Heart rate NL, Regular rhythm, Heart sounds NL, No gallop, No murmurs, No rubs Abdomen: Atraumatic, Soft Tenderness/Guarding/Rebound: Positive: Tender epigastric (mild) Back: Atraumatic, Full range of motion ENT: Atraumatic, Airway patent, Pharynx NL Mouth: Positive: Mucous membranes dry Interpretation & Diagnostics Lab Results Interpretation Result Diagram: 12/23/16193212/23/161932 Test 12/23/16 19:33 12/23/16 23:56 12/24/16 00:35 White Blood Count 6.4th/mm3 (3.8-10.1) Red Blood Count 4.51mil/mm3 (3.90-5.20) Hemoglobin 9.4g/dL (12.0-15.6) Hematocrit 31.4% (35.0-46.0) Mean Corpuscular Volume 69.6fL (81-100) Mean Corpuscular Hemoglobin 20.8pg (27.0-35.0) Mean Corpuscular Hemoglobin Concent 29.9% (32.0-37.0) Red Cell Distribution Width 22.2% (12.3-15.4) Platelet Count 345bil/L (150-400) Neutrophils (%) (Auto) 49.7% (40-74) Lymphocytes (%) (Auto) 41.5% (14-46) Monocytes (%) (Auto) 6.9% (4-12) Eosinophils (%) (Auto) 1.4% (0-5) Basophils (%) (Auto) 0.3% (0-3) Prothrombin Time 9.8sec (8.1-12.5) Prothromb Time International Ratio 0.92ratio Sodium Level 141mEq/L (134-144) Potassium Level 4.4mEq/L (3.5-5.2) Chloride Level 103mEq/L (97-108) Carbon Dioxide Level 22mmol/L (18-29) Blood Urea Nitrogen 7mg/dL (6-24) Creatinine 0.54mg/dL (0.57-1.00) Estimat Glomerular Filtration Rate 178mL/min (>59) Glucose Level 91mg/dL (60-99) Calcium Level 9.1mg/dL (8.5-10.1) Total Bilirubin 0.7mg/dL (0.0-1.2) Aspartate Amino Transf (AST/SGOT) 27U/L (0-50) Alanine Aminotransferase (ALT/SGPT) 12U/L (0-32) Alkaline Phosphatase 80U/L (25-150) Total Protein 7.2g/dL (6.4-8.4) Albumin 4.2g/dL (3.4-5.0) Lipase 64U/L (13-60) Lactic Acid Level 1.1mmol/L (0.4-2.0) Magnesium Level 1.9mg/dL (1.6-2.6) Urine Color Yellow (YELLOW) Urine Appearance Clear (CLEAR,HAZY) Urine pH 6.5 (5.0-8.0) Urine Specific [place] 1.015 (1.003-1.035) Urine Protein Negativemg/dL (NEG,TRACE) Urine Glucose (UA) Negativemg/dL (NEGATIVE) Urine Ketones Negativemg/dL (NEGATIVE) Urine Occult Blood Trace (NEGATIVE) Urine Nitrite Negative (NEGATIVE) Urine Bilirubin Negative (NEGATIVE) Urine Urobilinogen Normalmg/dL (NORMAL) Urine Leukocyte Esterase Negative (NEGATIVE) Urine RBC 0-2/hpf (0-2) Urine WBC 0-5/hpf (0-5) Urine Epithelial Cells Occasional/hpf (NONE-MOD) Urine Crystals None seen (NONE SEEN) Urine Bacteria None/hpf (NONE-FEW) Urine Hyaline Casts None/lpf (NONE) Urine Granular Casts None seen (NONE SEEN) Urine Waxy Casts None seen (NONE SEEN) Urine Red Blood Cell Casts None seen (NONE SEEN) Urine White Blood Cell Casts None seen (NONE SEEN) Urine Mucus None seen (None Seen) Urine Trichomonas None seen (NONE SEEN) Urine Yeast None (NONE SEEN) Urinalysis Comment None Urine Culture Reflexed Not indicated CT Abd / Pelvis Interpretation Post surgical changes. No small bowel obstruction. 2.4cm and 2.2cm cyst sin the left ovary. Signed by Dr. Ortega Cassidy 12/24/16 00:33 Study type: Abdominal CT IV contrast Interpretation / Wet Read by: Interpret - Radiologist Re-Eval/Medical Decision Med Decision/Clinical Course 41-year-old female status post gastric bypass and revision, presents with abdominal pain with no significant findings on CT and evaluation. Not currently on antacids. Esomeprazole started. Zofran when necessary. Source of Hx: Old records Re-Evaluation/Progress : Time of Eval: 01:15 Re-Evaluation/Progress Note: Rechecked pt. Discussed lab results, imaging results, diagnosis and plan to discharge. Pt understands and agrees with the plan. F/U instruction and RTER warning given. All questions addressed. Counseled Regarding: Diagnosis, Lab results, Need for follow-up, When/why to return to ED Discharge & Departure Primary Impression: Vomiting Vomiting type: unspecified Vomiting Intractability: non-intractable Nausea presence: with nausea Qualified Code: R11.2 - Nausea with vomiting, unspecified Additional Impression: Epigastric pain Disposition: Home Discharge Condition All VS Reviewed: Yes Condition: Stable Patient Instructions: Acute Abdominal Pain (ED), Gastritis (ED) Additional Instructions: Thank you for entrusting us with your care today. Your lab and imaging results are reassuring. Follow up with your primary care provider for further evaluation Take Zofran for nausea as prescribed. Return to the emergency department in case of black stool, worsening vomiting and any new or concerning symptoms. Referrals: TOD BAY (PCP) Francescaibe Attestation Portions of this note were transcribed by Nubia Otto. I,, personally performed the history, physical exam and medical decision-making;I reviewed and confirmed the accuracy of the information in the transcribed note. Signed by Rafael Lo. 12/24/16 copies to: TOD BAY Christopher W MD Dec 24, 2016 01:22 Nubia Otto Dec 24, 2016 02:19
[2016-12-24] MEDS ORDERED: ESOM40CA41 PO (01:25)
[2016-12-24] MEDS ORDERED: ONDA8TAB10 PO (01:25)
[2016-12-24] MEDS ORDERED: _Ondansetron ODT 4 mg Tablet PO PRN (01:25)
[2016-12-24] MEDS ORDERED: Pantoprazole 40 mg ER24 Tablet PO ONE (01:25)
[2016-12-24] MEDS ORDERED: oxyCODONE-Acetamin 5-325 mg Tablet PO ONE (01:25)
[2016-12-24 01:45] VITALS: BP 106/67; PULSE 61; RESP 19; O2SAT 99
--- NOTE | 2016-12-24 07:42 | DRSVH ---
PROCEDURE: CT ABDOMEN AND PELVIS WITH CONTRAST ([id number]) INDICATIONS: ruq pain TECHNIQUE: After the administration of oral and intravenous contrast, 5 mm thick sections acquired from the diap hragms to the symphysis. 5 mm thick coronal and sagittal reformats were performed. For radiation do se reduction, the following was used: automated exposure control, adjustment of mA and/or kV accordi ng to patient size. COMPARISON: [facility], CT, CT ABD PELVIS W CON, 07/11/2016, 21:37. [facility], CT, CT ABD PELVIS W CON, 01/15/2015, 17:20. FINDINGS: Image quality: Excellent. ABDOMEN: Lung bases: Lung bases are clear. Heart size is normal. Solid organs: Liver and spleen are normal in size and enhancement. Multiple low-density liver nodul es stable since at least 2014 consistent with benign cysts. Gallbladder is surgically absent. Biliar y system is non-dilated. Pancreas enhances normally. No adrenal nodules. Kidneys are normal in siz e and enhancement, without hydronephrosis. Peritoneum and bowel: Stomach, small bowel, and colon loops are normal in caliber and wall thickness . Postoperative changes in the proximal stomach. No free fluid or air. Nodes and vessels: No retroperitoneal or mesenteric adenopathy. Aorta and inferior vena cava are no rmal in caliber. Miscellaneous: No ventral hernias. The left ovary is slightly more superior than typically seen and contains multiple cysts measuring up to 2.5 CM. PELVIS: Genitourinary: Bladder wall thickness is normal. Miscellaneous: No inguinal hernias or adenopathy. Bones: No suspicious bony lesions. No vertebral body compression fractures. IMPRESSION: 1. No CT sonali a no discrepancies with the preliminary report. Dictated by: Lake Dotson M.D. on 12/24/2016 at 7:31 Approved by: Lake Dotson M.D. on 12/24/2016 at 7:40
== END 2016-12-24 01:46 | disposition home or self-care (01) ==
LOC: SED 18:32
DX: R11.2 Nausea with vomiting, unspecified (principal); R10.13 Epigastric pain; M79.7 Fibromyalgia; K85.90 Acute pancreatitis without necrosis or infection, unspecified; E78.5 Hyperlipidemia, unspecified; F17.200 Nicotine dependence, unspecified, uncomplicated; Z98.890 Other specified postprocedural states; Z98.84 Bariatric surgery status; Z87.19 Personal history of other diseases of the digestive system; Z88.6 Allergy status to analgesic agent; Z88.8 Allergy status to other drugs, medicaments and biological substances
CPT/HCPCS: 36415; 74177; 80053; 81000; 83605; 83690; 83735; 85025; 85610; 96361; 96374; 96375; 99285; J1170; J3490; J7030; Q9967